=== PATIENT | male | born 1940 | race Caucasian/White ===

== ENCOUNTER 2019-01-29 17:26 | Inpatient (IN) | payer MEDICARE ==
[2019-01-29] MEDS ORDERED: Ondansetron PF 4 MG/2 ML Vial IVP PRN (21:03)
[2019-01-29] MEDS ORDERED: Ondansetron ODT 4 MG TAB PO PRN (21:03)
[2019-01-29] MEDS ORDERED: Acetaminophen 325 MG TAB PO PRN (21:03)
[2019-01-29] MEDS ORDERED: Senokot S 8.6-50 MG TAB PO PRN (21:03)
[2019-01-29] MEDS ORDERED: Acetaminophen 500 MG TAB ONE (21:04)
[2019-01-29] MEDS ORDERED: Morphine 2 MG/ML SYRINGE SLOW IVP PRN (21:08)
[2019-01-29 22:41] VITALS: BMI 23.0
[2019-01-29] MEDS: metroNIDAZOLE 500 MG in Premix Bag 1 BAG IVPB SCH (22:47)
[2019-01-29] MEDS: Sodium Chloride 0.9% 1,000 ML IV SCH (22:47)
--- NOTE | 2019-01-30 04:08 | HP ---
PRIMARY CARE PHYSICIAN: Jeannie Kam MD CHIEF COMPLAINT: Abdomen pain. HISTORY OF PRESENT ILLNESS: Mr. Morrissey is a 78-year-old man who reported to the emergency room at [place] today after he had some significant abdominal pain when he woke up this morning. Denies any nausea, vomiting, or diarrhea. Reports his last bowel movement was this morning. Denies any blood, any dark tarry stools, or any changes to stool. Reports the last colonoscopy he had was 9 years ago. They did a CT scan while in the emergency room, showed 8.5 cm length of proximal mid descending colon involved with some mural edema and pericolonic edema consistent with focal colitis, uncertain if this is due to colonic diverticulitis; too abutting the distal edge of this, there is some focal mild expansion of the colon by a bolus of stool. No obvious constricting tumor mass is visualized distally. Radiology recommends as precautionary measure, colonoscopy is recommended at some time after the resolution of this acute episode. Also, showed some mild right nephrolithiasis and a single tiny right renal calculus. White blood cell count shown to be 12.6. Liver enzymes are unremarkable. Urine was also unremarkable. Hemoglobin 14, hematocrit 44. The patient was given some Cipro and Flagyl while in the emergency room and sent to [facility] Emergency Room for admission for colitis. REVIEW OF SYSTEMS: The patient reports abdominal pain, food intolerance. Does report chills. Denies any fever, nausea, vomiting, diarrhea. Denies any changes to stool. Denies any cardiac history. All other systems are reviewed and are negative unless mentioned in the HPI. PAST MEDICAL HISTORY: Includes enlarged prostate, hyperlipidemia, high cholesterol, and hypertension. PAST SURGICAL HISTORY: Had ear drum surgery in 1954. Also had an appendectomy when he was a child, left leg surgery in 1967, vasectomy in 1969, cataract surgery in 1982, kidney stones with lithotripsy in 1999, also had tonsillectomy. PSYCHIATRIC HISTORY: None. SOCIAL HISTORY: Denies any alcohol use. Denies drug use. Denies any smoking history. FAMILY HISTORY: Denies any which contribute to this particular episode. PHYSICAL EXAMINATION: VITAL SIGNS: Blood pressure 131/66, pulse is 68, respirations 16, pO2 sats are 96% on room air, temp is 98.3. CONSTITUTIONAL: The patient appears in no distress, there is in some mild pain discomfort. HEENT: Head is atraumatic and normocephalic. Eyes; eyelids are normal to inspection. Pupils are equal, round, and reactive to light. ENT; mouth exam is normal. Mucous membranes are moist. NECK: Normal range of motion. Trachea is midline. RESPIRATORY/CHEST: Breath sounds are clear. No respiratory distress. CARDIOVASCULAR: Heart rate; regular rate and rhythm. Heart sounds are normal. ABDOMEN: There is some left lower quadrant tenderness as well as left flank tenderness on palpation, bowel sounds are heard. There is no rigidity. No peritoneal signs. BACK: Normal inspection. No tenderness. EXTREMITIES: Upper extremities; normal inspection. Normal range of motion. Radial pulses are equal. Lower extremities; normal inspection. Normal range of motion. Pedal pulses are equal bilaterally. No edema is noted. NEUROLOGIC: The patient is oriented to person, place, and time. Speech is normal. SKIN: Warm, dry, normal in color. ASSESSMENT AND PLAN: 1. Colitis. We will place him on fluids. Cipro and Flagyl IV will be continued. Clear liquid diet will be advanced as tolerated. Lab values will be repeated in the morning. The patient has been instructed to have a colonoscopy sometime in the near future once the colitis dies down and he feels better. Pain medications as needed. 2. Hypertension. We will restart home medications. We will trend. 3. Enlarged prostate and BPH. Restart home medications. 4. Hyperlipidemia. We will restart home medications. Deep venous thrombosis and gastrointestinal prophylaxis have been started. 5. Hospital course is dependent on clinical findings. Job ID: [id number]
[2019-01-30 05:00] LABS: #Monocytes 1.2 thou/uL (0.11-0.59); #Neutrophils 12.7 thou/uL (1.40-6.50); %Basophils 0.2 % (0.0-1.0); %Eosinophils 0.3 % (0.0-10.0); %Lymphocytes 12.5 % (21.0-51.0); %Monocytes 7.3 % (0.0-10.0); %Neutrophils 79.7 % (42.0-75.0); Hemoglobin 12.8 g/dL (14.0-18.0); Mean Corpuscular HGB CONC 32.5 g/dL (32.0-36.0); Mean Corpuscular Hemoglobin 30.8 pg (27.0-31.0); Mean Corpuscular Volume 94.8 fL (78.0-98.0); Mean Platelet Volume 8.5 fL (7.4-10.4); Platelet Count 218 thou/uL (130-400); RBC Distribution Width 11.8 % (11.5-14.5); Red Blood Cell (RBC) Count 4.16 mill/uL (4.70-6.10)
[2019-01-30 05:24] LABS: ALT (SGPT) 14 U/L (8-55); AST (SGOT) 17 U/L (5-34); Albumin 3.7 g/dL (3.4-4.8); Alkaline Phosphatase 60 U/L (40-150); Anion Gap 8 mmol/L (10-20); BUN (Urea Nitrogen) 12 mg/dL (8.4-25.7); Bilirubin, Total 1.5 mg/dL (0.2-1.2); Calc. Creatinine Clearance 45 mL/min (70-130); Calcium 8.5 mg/dL (7.8-10.44); Carbon Dioxide 28 mmol/L (23-31); Chloride 106 mmol/L (98-107); Estimated GFR-MDRD 57; Globulin 2.2 g/dL (2.4-3.5); Glucose 99 mg/dL (83-110); Potassium 3.7 mmol/L (3.5-5.1); Protein, Total 5.9 g/dL (5.8-8.1); Sodium 138 mmol/L (136-145)
[2019-01-30] MEDS: metroNIDAZOLE 500 MG in Premix Bag 1 BAG IVPB SCH ×4 (05:53→23:44)
[2019-01-30] MEDS: Sodium Chloride 0.9% 1,000 ML IV SCH ×2 (07:59→19:24)
[2019-01-30 13:18] LABS: Lactic Acid 0.9 mmol/L (0.5-2.2)
[2019-01-30 14:39] LABS: #Basophils 0.1 thou/uL (0.0-0.2); #Eosinphils 0.1 thou/uL (0.0-0.7); #Lymphocytes 1.7 thou/uL (1.20-3.40); #Monocytes 0.8 thou/uL (0.11-0.59); #Neutrophils 8.8 thou/uL (1.40-6.50); %Basophils 0.5 % (0.0-1.0); %Eosinophils 0.7 % (0.0-10.0); %Lymphocytes 14.8 % (21.0-51.0); %Monocytes 7.4 % (0.0-10.0); %Neutrophils 76.6 % (42.0-75.0); Hemoglobin 12.3 g/dL (14.0-18.0); Mean Corpuscular HGB CONC 32.9 g/dL (32.0-36.0); Mean Corpuscular Hemoglobin 31.2 pg (27.0-31.0); Mean Corpuscular Volume 94.9 fL (78.0-98.0); Mean Platelet Volume 8.7 fL (7.4-10.4); Platelet Count 198 thou/uL (130-400); RBC Distribution Width 11.7 % (11.5-14.5); Red Blood Cell (RBC) Count 3.94 mill/uL (4.70-6.10); White Blood Cell (WBC) Count 11.5 thou/uL (4.8-10.8)
--- NOTE | 2019-01-30 19:56 | PRG ---
DATE OF SERVICE: 01/30/2019 SUBJECTIVE: Mr. Morrissey is a very pleasant 78-year-old male with past medical history significant for previous tobacco use, hypertension, and hyperlipidemia, who presented to the hospital with complaints of fairly severe abdominal pain. He has been admitted with colitis per CT scan. His pain has significantly improved overnight. He has had no nausea or vomiting. He has had no diarrhea or bloody diarrhea. He has had normal brown bowel movements per the patient. He is tolerating a clear liquid diet. Although his abdominal pain has much improved, he continues to have pain on the left side of his abdomen. He denies any chest pain or shortness of breath. No other complaints. He denies any fever or chills at this time. OBJECTIVE: VITAL SIGNS: Blood pressure 138/74, pulse is 68, O2 saturation is 94% on room air, respirations 18. The patient's temperature is 98.4. GENERAL: This is a well-appearing male, nontoxic appearing, resting comfortably in bed. HEENT: Head is atraumatic and normocephalic. Mucous membranes are moist. NECK: Supple. No lymphadenopathy. Trachea is midline. No carotid bruits. CV: S1 and S2. Regular rate and rhythm. No appreciable murmurs, rubs, or gallops. LUNGS: Regular respiratory rate and pattern. Clear to auscultation bilaterally. ABDOMEN: Positive bowel sounds. Overall, his belly is soft. Left, he exhibits guarding, and markedly tender on the left side of his abdomen. Nontender in lower abdomen and right side. EXTREMITIES: No edema. Extremities are warm and well perfused. NEUROLOGIC: Cranial nerves 2 through 12 are intact, nonfocal. SKIN: Warm and dry. LABORATORY DATA: White blood cell count 11.5, hemoglobin 12.3, hematocrit 37.4. Sodium 138, potassium 3.7, chloride 106, carbon dioxide 28, anion gap 8, BUN 12, creatinine 1.23. AST, ALT, alkaline phosphatase, all within normal limits. Lactic acid is negative. ASSESSMENT: 1. Focal colitis, questionable etiology at this point, possibly ischemic. 2. Mild focal expansion of colon by bowels of stool, colonoscopy recommended in the future. 3. Nonobstructive renal calculus. 4. Hypertension. 5. Hyperlipidemia. 6. [id number] smoking history, quit in 1982. 7. 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 8. Hypertension. 9. Hyperlipidemia. PLAN: At this point, we will continue a clear liquid diet and bowel rest. We will continue to monitor his symptoms closely. We will consult GI for further recommendations. Repeat CBC in the morning. The care of this case has been discussed with Dr. De Guzman and Dr. Sanders, who agree with the above. Job ID: [id number]
--- NOTE | 2019-01-31 01:34 | CON ---
DATE OF CONSULTATION: REFERRING PHYSICIAN: Yu Spivey, HAND COMPOSITOR - Rachell De Guzman MD REASON FOR CONSULTATION: Abdominal pain, abnormal CAT scan showing colitis of the descending colon area. HISTORY OF PRESENT ILLNESS: Mr. Zachariah Morrissey is a very pleasant 78-year-old male who does see Dr. Kam in [place]. He has been seeing Dr. Tobin for the last 6 years. The patient developed acute abdominal pain. The pain was over the left lower quadrant, left lumbar area comes from the left quadrant area. The pain was diffuse to begin, but later sit over the left quadrant area. He also had brief shaking chills. He has had nausea, but no vomiting. The patient has no hematochezia or diarrhea. He went to the [place] [facility] and had abdominal CAT scan. The CAT scan shows a left-sided diverticular disease and also colitis of the descending colon area. I am very clear he has just colitis or superimposed diverticulitis. Either way, he is on IV antibiotics. Abdominal pain markedly improved. The pain is very severe today, but the pain is actually getting better and better. He had a CAT scan of the abdomen done here with IV contrast. Because of the CAT scan with contrast, he has been having multiple loose stools today. Stools are watery and he has had 6 stools today. The patient had no rectal bleeding. The patient's last colonoscopy was 9 years ago when he is living in . The patient's bowel movements are fairly regular. There is no prior history of any GI bleeding or change in bowel habits. The patient has no relevant history. ALLERGIES: NONE. SOCIAL HISTORY: The patient is a former smoker. Drinks alcohol socially. MEDICAL ILLNESS: 1. Hypertension. 2. Hyperlipidemia. 3. Enlarged prostate. PAST SURGICAL HISTORY: 1. He had ear drum surgery in 1954. 2. Appendectomy. 3. Left leg surgery. 4. Vasectomy. 5. Cataract surgery. 6. Kidney stone lithotripsy x2. 7. Tonsillectomy. 8. He had colonoscopy about 9 years ago. FAMILY HISTORY: Multiple family members have Crohn's. Apparently, his father had 10 siblings and some of them with different types of cancer. His father himself of metastatic cancer. Grandfather had stomach cancer. One brother had Bright disease. MEDICATION LIST: Reviewed. REVIEW OF SYSTEMS: Ten point system review: HEAD: No chronic headache. No dizziness or vertigo. EYES: No diplopia. No impaired vision. EARS: No ear pain or discharge. NOSE: No nose bleeding. THROAT: No sore throat. No dysphagia. NECK: No stiffness or pain. LUNGS: No chronic coughing, hemoptysis, dyspnea. CARDIOVASCULAR: No chest pain. No palpitation. No dyspnea, orthopnea, or PND. GI: As in history of present illness. : History of prostate hypertrophy and history of nocturia and does urinate about 3 times a night. Urine flow is good. MUSCULOSKELETAL, NEURO, ENDOCRINE, HEMATOLOGICAL: Not known. PHYSICAL EXAMINATION: GENERAL: He appears very comfortable. He is a good historian. He is in no distress. He is awake, alert, and communicative. VITAL SIGNS: Afebrile. Pulse is 68, blood pressure 130/70. HEENT: Conjunctivae clear. NECK: Supple. No adenitis or thyromegaly noted. CARDIOVASCULAR: First and second heart sounds heard. LUNGS: Clear to auscultation. ABDOMEN: Soft. Abdomen is tender over the left quadrant area. There is no rebound or guarding. No organomegaly. Bowel sounds normal. EXTREMITIES: Reveal no edema. CENTRAL NERVOUS SYSTEM: Grossly within normal limits. LABORATORY DATA: Shows normal urinalysis. WBC count 12,600, normal hemoglobin and hematocrit. Chem-7 is normal. Abdominal CAT scan shows left-sided diverticular disease with colitis over the descending colon area. CLINICAL IMPRESSION: 1. A 78-year-old male with abdominal pain, CAT scan findings of colitis. The patient most likely has ischemic colitis with symptomatology. It is also possible that this could be element of acute diverticulitis. Given IV antibiotics and symptoms markedly improved. He is on clear liquid diet. He is tolerating diet without any worsening abdominal pain. 2. Hypertension. 3. Hyperlipidemia. 4. Enlarged prostate. 5. Past history of kidney stone, status post lithotripsy. The patient does have kidney stones on CAT scan, but felt to be asymptomatic. RECOMMENDATION: 1. Continue antibiotics. 2. Clear liquid diet. 3. We will advance diet tomorrow on see how he does. If he does well on diet, he possibly can go home on Saturday. He will come back to see me in the outpatient for a colonoscopy in the next 4 weeks. Job ID: [id number]
[2019-01-31 05:53] LABS: #Eosinphils 0.2 thou/uL (0.0-0.7); #Lymphocytes 1.6 thou/uL (1.20-3.40); #Monocytes 0.9 thou/uL (0.11-0.59); %Basophils 0.3 % (0.0-1.0); %Eosinophils 2.2 % (0.0-10.0); %Lymphocytes 16.8 % (21.0-51.0); %Monocytes 8.8 % (0.0-10.0); %Neutrophils 71.8 % (42.0-75.0); Hemoglobin 11.8 g/dL (14.0-18.0); Mean Corpuscular HGB CONC 32.6 g/dL (32.0-36.0); Mean Corpuscular Hemoglobin 30.9 pg (27.0-31.0); Mean Corpuscular Volume 94.8 fL (78.0-98.0); Mean Platelet Volume 8.6 fL (7.4-10.4); Platelet Count 188 thou/uL (130-400); RBC Distribution Width 11.7 % (11.5-14.5); Red Blood Cell (RBC) Count 3.82 mill/uL (4.70-6.10); White Blood Cell (WBC) Count 9.8 thou/uL (4.8-10.8)
[2019-01-31] MEDS: Sodium Chloride 0.9% 1,000 ML IV SCH ×3 (05:59→20:41)
[2019-01-31] MEDS: metroNIDAZOLE 500 MG in Premix Bag 1 BAG IVPB SCH ×4 (06:01→23:22)
[2019-01-31 06:18] LABS: Anion Gap 9 mmol/L (10-20); BUN (Urea Nitrogen) 9 mg/dL (8.4-25.7); Calc. Creatinine Clearance 52 mL/min (70-130); Calcium 8.1 mg/dL (7.8-10.44); Carbon Dioxide 23 mmol/L (23-31); Chloride 111 mmol/L (98-107); Estimated GFR-MDRD 66; Glucose 89 mg/dL (83-110); Potassium 3.7 mmol/L (3.5-5.1); Sodium 139 mmol/L (136-145)
--- NOTE | 2019-01-31 10:22 | PRG ---
DATE OF SERVICE: 01/31/2019 SUBJECTIVE: This is a 78-year-old male hospitalized 2 days ago with abdominal pain. Abdominal CAT scan showing thickening of the colon over the descending colon indicative of colitis. He is on IV antibiotics. His abdominal pain is slowly getting better. He has left abdominal pain over the left colon area. The pain intensity is less than before. He has had multiple stools yesterday and he has had another 5 more stools today. He also feels sick to stomach. My plan was to advance diet to a mechanical soft diet, but because he is having nausea, I just hold his diet. PHYSICAL EXAMINATION: GENERAL: Appears comfortable, in no acute distress. VITAL SIGNS: Afebrile. Pulse is 56, blood pressure is 140/70. CARDIOVASCULAR: Within normal limits. ABDOMEN: Mildly distended. Abdomen is soft. ointment mill tender over the left colon area. He has more towards left lumbar area. There is no rebound or guarding. LABORATORY DATA: From today shows WBC dropping down to 9800, hemoglobin 11.8, hematocrit 36.2, platelet count is 188,000. His chem-7 is actually normal, potassium 3.7. CLINICAL IMPRESSION: 1. Infectious colitis versus ischemic colitis. 2. Possible diverticulitis. RECOMMENDATION: 1. Advance diet to full liquid diet today. If he does well, he may consider mechanical soft diet tomorrow. 2. Continue antibiotics. Job ID: [id number]
--- NOTE | 2019-01-31 20:37 | PRG ---
DATE OF SERVICE: 01/31/2019 SUBJECTIVE: Mr. Morrissey is a very pleasant 78-year-old male with past medical history significant for previous tobacco abuse, hypertension, hyperlipidemia, who presented to the hospital with complaints of fairly severe abdominal pain. He has been admitted with likely ischemic colitis. His pain has significantly improved since his stay. He has had no nausea or vomiting. He had no diarrhea up until this morning, when he did have some diarrhea with a small amount of blood. He is tolerating a clear liquid diet well at this point. He denies any chest pain or shortness of breath. No other complaints. He denies any fever or chills. OBJECTIVE: VITAL SIGNS: Blood pressure 131/58, pulse is 58, O2 saturation is 95% on room air, respirations 16, temperature 98.6. GENERAL: The patient is a well-appearing male, nontoxic appearing, resting comfortably in bed. HEENT: Head is atraumatic and normocephalic. Mucous membranes are moist. NECK: Supple. No lymphadenopathy. Trachea is midline. No carotid bruits. CV: S1 and S2. Regular rate and rhythm. No appreciable murmurs, rubs, or gallops. LUNGS: Regular respiratory rate and pattern. Clear to auscultation bilaterally. ABDOMEN: Positive bowel sounds. His abdomen is soft. He exhibits some mild tenderness to palpation on the left side of his abdomen, however, this is much improved from yesterday. He has no guarding or rebound tenderness at all. He is nontender throughout the rest of his abdomen. EXTREMITIES: No edema. Extremities are warm and well perfused. NEUROLOGIC: Cranial nerves 2 through 12 are intact, nonfocal. SKIN: Warm and dry. LABORATORY DATA: White blood cell count 9.8, hemoglobin 11.8, hematocrit 36.2, platelet count is 188. Sodium 139, potassium 3.7, anion gap is 9, creatinine 1.08. ASSESSMENT: Focal colitis per CT scan, ischemic versus infectious, although I suspect ischemic given his history. 1. Mild focal expansion of colon by bolus of stool. Colonoscopy recommended in the future. 2. Nonobstructive renal calculus. 3. Hypertension. 4. Hyperlipidemia. 5. Eighty-four pack-year smoking history, quit 1982. 6. Atherosclerotic calcification of his abdominal aorta and iliac artery/peripheral vascular disease. 7. Hypertension. 8. Hyperlipidemia. Appreciate GI recommendations. Given his development of diarrhea, we will only advance the patient to full liquids as opposed to mechanical soft, and continue to observe him closely. The nature of this disease process has been explained to the patient at length, and all questions have been answered. We will repeat CBC and BMP in the morning. Continue empiric antibiotic coverage. The patient does continue to slowly improve, although given his advanced age and comorbidities, he does meet inpatient criteria at this time. If patient continues to be able to advance his diet, we would hope that he could be discharged in the next 24-48 hours when GI deems appropriate for discharge. He will also have to have an outpatient colonoscopy after his colitis resolves. Job ID: [id number]
[2019-02-01] MEDS: metroNIDAZOLE 500 MG in Premix Bag 1 BAG IVPB SCH ×2 (05:08→11:40)
[2019-02-01 05:55] LABS: #Eosinphils 0.2 thou/uL (0.0-0.7); #Lymphocytes 1.7 thou/uL (1.20-3.40); #Monocytes 0.9 thou/uL (0.11-0.59); #Neutrophils 7.2 thou/uL (1.40-6.50); %Basophils 0.4 % (0.0-1.0); %Eosinophils 2.4 % (0.0-10.0); %Lymphocytes 16.5 % (21.0-51.0); %Monocytes 8.6 % (0.0-10.0); %Neutrophils 72.1 % (42.0-75.0); Hemoglobin 11.3 g/dL (14.0-18.0); Mean Corpuscular Hemoglobin 30.6 pg (27.0-31.0); Mean Corpuscular Volume 95.7 fL (78.0-98.0); Mean Platelet Volume 8.7 fL (7.4-10.4); Platelet Count 196 thou/uL (130-400); RBC Distribution Width 11.7 % (11.5-14.5)
[2019-02-01 06:12] LABS: Anion Gap 12 mmol/L (10-20); BUN (Urea Nitrogen) 8 mg/dL (8.4-25.7); Calc. Creatinine Clearance 56 mL/min (70-130); Carbon Dioxide 20 mmol/L (23-31); Chloride 111 mmol/L (98-107); Estimated GFR-MDRD 72; Glucose 85 mg/dL (83-110); Potassium 3.6 mmol/L (3.5-5.1); Sodium 139 mmol/L (136-145)
[2019-02-01] MEDS: Sodium Chloride 0.9% 1,000 ML IV SCH (08:18)
[2019-02-01 12:00] VITALS: TEMP 98.3
[2019-02-01 14:20] VITALS: BP 142/60
--- NOTE | 2019-02-01 20:46 | DIS ---
DATE OF ADMISSION: 01/29/2019 DATE OF DISCHARGE: 02/01/2019 DISCHARGE DIAGNOSES: 1. Ischemic colitis/suspected diverticulitis of the descending colon, improved. 2. Abdominal pain secondary to #1, improved. 3. Hypertension, stable. 4. Dehydration, resolved. CONSULTATIONS: Dr. Martin with GI Service. PERTINENT LAB AND X-RAY FINDINGS: Creatinine ranged between 1.0 to 1.23. Estimated GFR ranged between 57 to 72, total bilirubin 1.5. LFTs within normal limits. CBC showed a white blood cell count ranged between 9.8 to 16.0, hemoglobin ranged between 11.[address] of the abdomen and pelvis dated 01/29/2019, showed colonic edema and pericolonic wall thickening in the descending colon suggesting focal colitis. Large amount of stool noted in the same region. HOSPITAL COURSE: The patient was initially admitted after presenting with abdominal pain, undergoing CT imaging of the abdomen and pelvis showing focal colitis in the descending colon with associated large bolus of stool. The patient was placed on IV fluids as well as ciprofloxacin and IV Flagyl and monitored for clinical response. Due to the patient's CT findings, a GI consultation was obtained with recommendations for conservative management, pain control, and IV antibiotic therapy. The patient clinically improved with supportive management and did develop mild diarrhea with some blood tinging. Current recommendations per GI service are for outpatient colonoscopy exam after resolution of current colitis. The patient was transitioned from clear liquids to mechanical soft, tolerating without difficulty. Overall, the patient's abdominal pain had improved by the time of discharge. I have examined the patient at the time of discharge and discussed followup instructions, at which point the patient and family verbalized understanding and in agreement. The patient ready for discharge on 02/01/2019. DISCHARGE MEDICATIONS: 1. Ciprofloxacin 500 mg p.o. b.i.d. x7 days. 2. Flagyl 500 mg p.o. t.i.d. x7 days. 3. Florastor 250 mg p.o. daily x10 days. 4. Enteric-coated aspirin 81 mg p.o. daily. 5. Doxazosin 8 mg p.o. daily. 6. Pravachol 20 mg p.o. daily. 7. Quinapril 10 mg p.o. daily. FOLLOWUP: The patient will follow up with his primary care provider, Dr. Jeannie Kam within 7 days of discharge. The patient will follow up with Dr. Martin with GI Service within 2 weeks of discharge. CONDITION ON DISCHARGE: Stable. ACTIVITY: Ad-uri. DIET: Regular. CODE STATUS: Full. DISPOSITION: Home on 02/01/2019. TIME SPENT: Total time preparing and coordinating discharge, 32 minutes. Job ID: [id number]
--- NOTE | 2019-02-02 12:35 | PRG ---
DATE OF SERVICE: 02/01/2019 SUBJECTIVE: Mr. Zachariah Morrissey is a 78-year-old male with abdominal pain and findings of colitis on CAT scan. He is on IV antibiotics. He is tolerating full liquid diet from yesterday. He has mild nausea off and on, but no vomiting. He had mild hematochezia yesterday, but blood count remained stable around 11.9 and 11.8. There is no more bleeding. He is still having loose stool. today. Stools are watery. He also got some med for nausea. Abdominal pain is actually less than before. PHYSICAL EXAMINATION: VITAL SIGNS: Afebrile. Temperature 98.4 degrees Fahrenheit, pulse is 53, blood pressure 141/65. CARDIOVASCULAR: First and second heart sounds heard. LUNGS: Clear to auscultation. ABDOMEN: Soft. No organomegaly. Abdomen is tender over the left colon area as much less tender before. No rebound or guarding. Active bowel sounds. LABORATORY DATA: From today WBC 10,000, hemoglobin 11.3, hematocrit 35, platelet count 196,000, polymorphs 72, lymphocytes 16, and monocytes 8. Chem-7 is normal today. CLINICAL IMPRESSION: 1. Acute colitis, possible diverticulitis. This is a possibility of ischemic bowel disease. 2. Diarrhea, persistent, most likely . However, this is almost three days ago. RECOMMENDATION: 1. Advance diet to regular diet. 2. Obtain stool for C. difficile and ova and parasites and culture. 3. If the patient does well with without abdominal pain on regular diet, may consider discharge home tomorrow. He will come back to me as an outpatient for a colonoscopy in the next 4 weeks. Job ID: [id number]
== END 2019-02-01 14:31 | disposition home or self-care (01) | DRG 391 ==
LOC: ERS 17:26 → OBSVTOIN 19:19 → 3SE 19:19 → ERHOLD 21:02 → T4-B 22:24
PROVIDERS: ADMIT Internal Medicine; ATTEND Internal Medicine
DX: K57.32 Diverticulitis of large intestine without perforation or abscess without bleeding (principal); K55.039 Acute (reversible) ischemia of large intestine, extent unspecified; N20.0 Calculus of kidney; E78.00 Pure hypercholesterolemia, unspecified; I10 Essential (primary) hypertension; N40.0 Benign prostatic hyperplasia without lower urinary tract symptoms; I73.9 Peripheral vascular disease, unspecified; E86.0 Dehydration; Z90.49 Acquired absence of other specified parts of digestive tract; Z87.891 Personal history of nicotine dependence; Z79.899 Other long term (current) drug therapy; Z79.82 Long term (current) use of aspirin
CPT/HCPCS: 36415; 80048; 80053; 83605; 85025; 87045; 87046; 87324; 87449; 87899; 99284; J0744; J2405